=== PATIENT | male | born 1990 | race Caucasian/White ===

== ENCOUNTER 2019-02-11 16:37 | Emergency (ER) | payer OTHER ==
--- OUTSIDE RECORDS SUMMARY | 2019-02-11 16:52 | XMS REPORT | Continuity of Care Document ---
:1990 External Reference #:[id number] Demographics Phone Unavailable Preferred Language Unknown Marital Status Unknown Quaker Affiliation Unknown Race Unknown Ethnic Group Unknown Author Name Hannah Wei Description No Information Available Social History Type Date Description Comments Sex Unknown Allergies, Adverse Reactions, Alerts Description No Information Available Medications Description No Information Available Immunizations Description No Information Available Vital Signs Description No Information Available Results Description No Information Available Procedures Description No Information Available Medical Devices Description No Information Available Encounters Description No Information Available Assessments Description No Information Available Plan of Treatment No Information Available Functional Status Description No Information Available Mental Status Description No Information Available Referrals Description No Information Available
[2019-02-11 18:50] LABS: ABS Eosinophils 0.1 10^3/ul (0-0.6); ABS Lymphocytes 1.6 10^3/ul (1.0-4.8); ABS Monocytes 0.7 10^3/ul (0-0.8); ABS Neutrophils 5.4 10^3/ul (1.5-7.7); Eosinophil % 0.7 %; Hematocrit 45 % (42-52); Hemoglobin 15.2 g/dL (14.0-18.0); Mean Corpuscular HGB Conc 34 g/dL (31-36); Mean Corpuscular Hemoglobin 28 pg (27-31); Mean Corpuscular Volume 81 fL (80-94); Nucleated Red Blood Cells % 0.1; Platelet Count 208 10^3/uL (150-450); Red Blood Count 5.52 10^6 /uL (4.18-5.48); Red Cell Distribution Width 14 % (10-15); White Blood Count 7.7 10^3/uL (3.5-10.8)
[2019-02-11 18:57] LABS: INR 1.12 (0.82-1.09)
[2019-02-11 19:11] LABS: Albumin 4.4 g/dL (3.2-5.2); Albumin/Globulin Ratio 1.7 (1-3); BUN/Creatinine Ratio 15.1 (8-20); Calcium 9.5 mg/dL (8.6-10.3); EGFR African American 116.2 (>60); EGFR Non-African American 96.1 (>60); Globulin 2.6 g/dL (2-4); Potassium 3.7 mmol/L (3.5-5.0); Total Bilirubin 0.5 mg/dL (0.2-1.0)
--- NOTE | 2019-02-11 19:17 | ED ---
HPI Chest Pain - HPI Summary HPI Summary: 28 year old M presenting to [facility] complains of left sided chest pain that started last Monday02/04/19, worse since this morning today 02/11/19. Patient states that last Monday02/04/19, the left-sided chest pain was throbbing/sore, dull. States he thought that the pain was coming from his chest wall. Today , patient states that the pain became sharp, is still non-radiating. Patient denies cough, fever, rash, myalgia. Denies recent illness. The patient rates the pain 2/10 currently in severity. Symptoms aggravated by deep breathing. Symptoms alleviated by nothing. PMHx right-sided pneumothorax in 2006 and 2007. States that symptoms today felt similar to pneumothorax. - History of Current Complaint Chief Complaint: EDChestPainROMI Time Seen by Provider: 02/11/19 19:09 Hx Obtained From: Patient Onset/Duration: Started Weeks Ago - 1, Still Present, Worse Since - TODAY Timing: Constant Current Severity: Mild Pain Intensity: 2 Pain Scale Used: 0-10 Numeric Chest Pain Radiates: No Character: Dull/Aching, Sharp/Stabbing, Other: - throbbing/sore Aggravating Factor(s): Deep Breaths Alleviating Factor(s): Nothing Associated Signs and Symptoms: Positive: Negative - fever, cough, rash, myalgia - Allergy/Home Medications Allergies/Adverse Reactions: Allergies Allergy/AdvReac Type Severity Reaction Status Date / Time MS Penicillins [Penicillins] Allergy Unknown Unknown Verified 08/18/16 16:49 Reaction Details TOPICAL NUMBING AGENT Allergy Severe "MADE MY Uncoded 10/22/15 16:14 SKIN CRAWL" PMH/Surg Hx/FS Hx/Imm Hx Respiratory History: Reports: Hx Asthma - EXERCISED INDUCED Denies: Hx Chronic Obstructive Pulmonary Disease (COPD) Sensory History: Reports: Hx Contacts or Glasses Opthamlomology History: Reports: Hx Contacts or Glasses - Surgical History Surgery Procedure, Year, and Place: SPONTANEOUS PNEUMOTHORAX REPAIR X2 - Immunization History Immunizations Up to Date: Yes Infectious Disease History: No Infectious Disease History: Denies: History Other Infectious Disease, Traveled Outside the [place] in Last 30 Days - Family History Known Family History: Positive: Hypertension - Social History Alcohol Use: None Substance Use Type: Reports: None Smoking Status (MU): Never Smoked Tobacco Review of Systems Negative: Fever Positive: Chest Pain Negative: Cough Negative: Myalgia Negative: Rash All Other Systems Reviewed And Are Negative: Yes Physical Exam - Summary Physical Exam Summary: Appearance: Well-appearing, Well-nourished, lying in bed comfortably Skin: Warm, dry, no obvious rash Eyes: sclera anicteric, no conjunctival pallor ENT: mucous membranes moist, pharynx appears normal Neck: Supple, nontender Respiratory: Clear to auscultation, no signs of respiratory distress Cardiovascular: Normal S1, S2. No murmurs. Normal distal pulses in tibial and radial bilaterally. Abdomen: Soft, nontender, normal active bowel sounds present Musculoskeletal: Normal, Strength/ROM Intact Neurological: A&Ox3, awake and alert, mentation is normal, speech is fluent and appropriate Psychiatric: affect is normal, does not appear anxious or depressed Triage Information Reviewed: Yes Vital Signs On Initial Exam: Initial Vitals Temp Pulse Resp BP Pulse Ox 97.9 F 81 16 133/80 100 02/11/19 16:43 02/11/19 16:43 02/11/19 16:43 02/11/19 16:43 02/11/19 16:43 Vital Signs Reviewed: Yes Procedures - Sedation Patient Received Moderate/Deep Sedation with Procedure: No Diagnostics - Vital Signs Vital Signs Temp Pulse Resp BP Pulse Ox 02/11/19 16:43 97.9 F 81 16 133/80 100 - Laboratory Lab Results: Lab Results 02/11/19 02/11/19 Range/Units 18:42 18:42 WBC 7.7 (3.5-10.8) 10^3/uL RBC 5.52 H (4.18-5.48) 10^6 /uL Hgb 15.2 (14.0-18.0) g/dL Hct 45 (42-52) % MCV 81 (80-94) fL MCH 28 (27-31) pg MCHC 34 (31-36) g/dL RDW 14 (10-15) % Plt Count 208 (150-450) 10^3/uL MPV 9.0 (7.4-10.4) fL Neut % (Auto) 69.7 % Lymph % (Auto) 20.0 % [place] % (Auto) 9.2 % Eos % (Auto) 0.7 % Baso % (Auto) 0.4 % Absolute Neuts (auto) 5.4 (1.5-7.7) 10^3/ul Absolute Lymphs (auto) 1.6 (1.0-4.8) 10^3/ul Absolute Monos (auto) 0.7 (0-0.8) 10^3/ul Absolute Eos (auto) 0.1 (0-0.6) 10^3/ul Absolute Basos (auto) 0.0 (0-0.2) 10^3/ul Absolute Nucleated RBC 0.0 10^3/ul Nucleated RBC % 0.1 INR (Anticoag Therapy) 1.12 H (0.82-1.09) Result Diagrams: 02/11/19 18:42 02/11/19 18:42 Lab Statement: Any lab studies that have been ordered have been reviewed, and results considered in the medical decision making process. - Radiology CXR Radiology Interpretation Completed By: Radiologist Summary of Radiographic Findings: NO ACTIVE CARDIOPULMONARY DISEASE. ED physician has reviewed this report. - EKG 1638 Cardiac Rate: NL - 78 BPM EKG Rhythm: Sinus Rhythm Summary of EKG Findings: An EKG shows NSR at 78 BPM, P waves, QRS complex, and T waves are within normal limits, T waves and intervals are normal, no ischemic changes. This is a normal EKG. Chest Pain Course/Dx - Course Course Of Treatment: 28 year old M complains of chest pain that started as throbbing/sore/dull last Monday02/04/19, and has since become sharp/non- radiating since this morning today 02/11/19. Physical exam is unremarkable. Bloodwork results with no significant abnormalities except for RBC 5.52, INR 1.12. An EKG shows NSR at 78 BPM, P waves, QRS complex, and T waves are within normal limits, T waves and intervals are normal, no ischemic changes. This is a normal EKG. CXR shows, per radiologist: NO ACTIVE CARDIOPULMONARY DISEASE. Patient will be discharged home with follow up from his primary care provider if needed. Patient was instructed to return to Emergency Department for new or worsening symptoms. Patient understands and is agreeable to this plan. - Diagnoses Provider Diagnoses: Chest wall pain Discharge ED - Sign-Out/Discharge Documenting (check all that apply): Patient Departure - Discharge - Discharge Plan Condition: Good Disposition: HOME Patient Education Materials: Chest Wall Pain (ED) Referrals: Srikanth Urbano MD [Primary Care Provider] - If Needed - Billing Disposition and Condition Condition: GOOD Disposition: Home - Attestation Statements Document Initiated by Latosha: Yes Documenting Scribe: Tierney Batres Provider For Whom Latosha is Documenting (Include Credential): Naveen Carranza MD Scribe Attestation: ITierney, scribed for Naveen Carranza MD on 02/12/19 at 0341. Scribe Documentation Reviewed: Yes Provider Attestation: The documentation as recorded by the Tierney magaña accurately reflects the service I personally performed and the decisions made by me, Naveen Carranza MD Status of Scribjoanna Document: Viewed
[2019-02-11 19:49] VITALS: BP 127/72
== END 2019-02-11 19:49 | disposition home or self-care (01) ==
LOC: ED 16:37
DX: R07.89 Other chest pain (principal); Z88.4 Allergy status to anesthetic agent; Z88.0 Allergy status to penicillin
CPT/HCPCS: 36415; 71046; 80053; 84484; 85025; 85610; 93005; 99282